=== PATIENT | female | born 1970 | race Asian ===

== ENCOUNTER 2019-09-13 10:06 | Emergency (ER) | payer BC, OTHER ==
[~2019-09-13] VITALS: Ht 157.5 cm; Wt 59.0 kg
[2019-09-13 10:12] VITALS: BP_SYST 144
[2019-09-13] MEDS ORDERED: PHENAZOPYRIDINE HCL 100 MG TABLET PO ONE (10:45)
[2019-09-13] MEDS ORDERED: KETOROLAC TROMETHAMINE 60 MG/2 ML VIAL IM ONE (10:45)
[2019-09-13] MEDS ORDERED: LEVOFLOXACIN 500 MG TABLET PO ONE (10:45)
[2019-09-13 10:50] LABS: BILIRUBIN,URINE NEGATIVE (NEGATIVE); BLOOD, URINE 2+ (NEGATIVE); CLARITY/URINE CLOUDY (CLEAR); COLOR,URINE ORANGE (YELLOW); GLUCOSE,URINE TRACE (NEGATIVE); KETONES,URINE NEGATIVE (NEGATIVE); LEUKOCYTE ESTERASE ,URINE 3+ (NEGATIVE); NITRITE, URINE POSITIVE (NEGATIVE); PH,URINE 6.5 (5.0-8.0); PROTEIN URINE 3+ (NEGATIVE)
[2019-09-13 11:19] LABS: BACTERIA,URINE MODERATE /HPF (None Seen); WBC,URINE 50-80 /HPF (0-3)
[2019-09-13 11:46] VITALS: BP_SYST 135
== END 2019-09-13 11:44 | disposition home or self-care (01) ==
LOC: SED 10:06
DX: S39.012A Strain of muscle, fascia and tendon of lower back, initial encounter (principal); N39.0 Urinary tract infection, site not specified; X50.9XXA Other and unspecified overexertion or strenuous movements or postures, initial encounter; Y93.89 Activity, other specified; Y92.89 Other specified places as the place of occurrence of the external cause; Y99.8 Other external cause status
CPT/HCPCS: 81000; 87086; 96372; 99283; J1885; 87186-TC